=== PATIENT | female | born 1975 | race Two or more races ===

== ENCOUNTER → 2024-11-09 | Outpatient (CLI) | payer BC, SELFPAY ==
--- NOTE | 2024-11-09 10:30 | XR_ITS ---
Examination: Ultrasound soft tissue left lower extremity TECHNIQUE: Grayscale sonographic images soft tissue left posterior calf Exam date and time: May 09, 2025 1119 hours INDICATIONS: Patient heard a pop in the left calf 3 days ago with pain FINDINGS: 5.4 x 1.7 x 4.9 cm tubular cystic structure consistent with hematoma in the medial posterior calf IMPRESSION: Findings most consistent with hematoma in the calf Consider MRI left lower leg follow-up to assess for plantaris tendon rupture or tear and hematoma in the gastrocnemius and soleus musculature
== END | disposition home or self-care (01) ==
DX: S86.112A Strain of other muscle(s) and tendon(s) of posterior muscle group at lower leg level, left leg, initial encounter (principal); X58.XXXA Exposure to other specified factors, initial encounter
CPT/HCPCS: 76882